=== PATIENT | female | born 1975 | race African-American/Black ===

== ENCOUNTER → 2017-03-31 | Outpatient (CLI) | payer OTHER ==
--- NOTE | 2017-03-31 21:00 | MR ---
EXAMINATION TYPE: MR knee RT wo con DATE OF EXAM: 03/31/2017 COMPARISON: X-ray 02/08/2016 HISTORY: Rt knee pain, no trauma TECHNIQUE: Multiplanar, multisequence imaging of the right knee is performed without IV contrast. FINDINGS: MEDIAL MENISCUS: Lateral meniscus has a normal appearance. 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 LATERAL MENISCUS: Anterior and posterior horns are intact without tear. CRUCIATE LIGAMENTS: There is no evidence of tear of the posterior cruciate ligament. Anterior cruciat e ligament has a normal origin and insertion but demonstrates ill-definition of the posterior fibers. ACL strain suspected. COLLATERAL LIGAMENTS: The medial collateral ligament and lateral collateral ligament complex are inta ct. However, there is increased fluid signal surrounding the MCL compatible with strain.. EXTENSOR MECHANISM: Visualized quadriceps and patellar tendons are intact. EFFUSION: Small amount of fluid is seen within the suprapatellar bursa. POPLITEAL CYST: 5 x 5 x 7 mm popliteal fossa cyst noted.. TRICOMPARTMENT SPACES: There is fibrillation of the patellar cartilage. Mild joint space narrowing no trev. Hypertrophic spur extending off the anterior inferior margin the patella. Mild narrowing the med ial compartment knee joint. No erosive changes. Cartilage appears maintained within the knee joint. BONE MARROW SIGNAL: Abnormal signal alteration within the inferior margin patella appears likely post degenerative and secondary to reactive marrow changes. IMPRESSION: 1. Findings are suggestive of ACL and MCL strain with no definite tear. 2. Findings are highly suggestive of a peripheral posterior horn medial meniscal tear 3. 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
== END | disposition home or self-care (01) ==
LOC: RADMRIMAIN 19:40
PROVIDERS: ATTEND Orthopaedic Surgery
DX: M17.11 Unilateral primary osteoarthritis, right knee (principal); M22.41 Chondromalacia patellae, right knee

== ENCOUNTER → 2018-01-17 | Outpatient (CLI) | payer BC ==
[2018-01-17 09:19] LABS: ALT 28 U/L (9-52); AST 15 U/L (14-36); Albumin 3.9 g/dL (3.5-5.0); Alkaline Phosphatase 76 U/L (38-126); Anion Gap 12 mmol/L; Blood Urea Nitrogen 12 mg/dL (7-17); Calcium 9.3 mg/dL (8.4-10.2); Carbon Dioxide 24 mmol/L (22-30); Chloride 105 mmol/L (98-107); Cholesterol 274 mg/dL (<200); Glucose 95 mg/dL (74-99); HDL Cholesterol 41 mg/dL (40-60); LDL Cholesterol,Calculated 190 mg/dL (0-99); Potassium 4.1 mmol/L (3.5-5.1); Sodium 141 mmol/L (137-145); Total Bilirubin 0.3 mg/dL (0.2-1.3); Total Protein 6.8 g/dL (6.3-8.2); Triglycerides 213 mg/dL (<150)
[2018-01-17 09:25] LABS: Basophils # (A) 0.1 k/uL (0-0.2); Basophils % (A) 0 %; Eosinophils # (A) 0.3 k/uL (0-0.7); Eosinophils % (A) 2 %; HCT 38.1 % (34.0-46.0); HGB 12.4 gm/dL (11.4-16.0); Lymphocytes # (A) 2.8 k/uL (1.0-4.8); Lymphocytes % (A) 25 %; MCH 28.3 pg (25.0-35.0); MCHC 32.4 g/dL (31.0-37.0); MCV 87.4 fL (80.0-100.0); Mean Platelet Volume 7.1; Monocytes # (A) 0.2 k/uL (0-1.0); Monocytes % (A) 2 %; Neutrophils # (A) 7.6 k/uL (1.3-7.7); Neutrophils % (A) 69 %; Platelet Count 288 k/uL (150-450); RBC 4.36 m/uL (3.80-5.40)
== END | disposition home or self-care (01) ==
LOC: LABWHC1 08:14
PROVIDERS: ATTEND Nurse Practitioner Family
DX: E78.5 Hyperlipidemia, unspecified (principal); D64.9 Anemia, unspecified
CPT/HCPCS: 36415; 80053; 80061; 82607; 85025

== ENCOUNTER → 2019-06-29 | Outpatient (CLI) | payer BC, OTHER ==
--- NOTE | 2019-06-29 12:08 | CT ---
EXAMINATION TYPE: CT brain wo con, CT orbits wo con DATE OF EXAM: 06/29/2019 COMPARISON: CT brain May 26, 2016 HISTORY: headache eye pain (accession [id number]), headache eye pain (accession [id number]) CT DLP: 775 (accession [id number]), 275 (accession [id number]) mGycm. Automated Exposure Control for Dos e Reduction was Utilized. TECHNIQUE: CT scan of the head and orbits are performed without contrast. FINDINGS: There is no acute intracranial hemorrhage, mass effect, or midline shift identified. The ventricles and sulci are within normal limits in size. Patel-white matter differentiation is preserv ed. New skin chrissy posterior high occipital region axial image 44. The calvarium is intact. The paranasal sinuses are clear. The orbital floors and tavarez are intact. The globes are intact bilat erally. Intraconal fat is preserved bilaterally. Rectus muscles are symmetric and felt within normal limits. Suprasellar cistern is maintained. IMPRESSION: 1. No acute intracranial hemorrhage or midline shift is seen. 2. No suspicious intraorbital findings.
--- NOTE | 2019-06-30 13:01 | ECHOF ---
Referral Reason:R51 new onset temporal headache,R01.1 heart murmur MEASUREMENTS -------- HEIGHT: 170.2 cm WEIGHT: 104.3 kg BP: RVIDd: 3.1 cm (< 3.3) IVSd: 1.4 cm (0.6 - 1.1) LVIDd: 4.1 cm (3.9 - 5.3) LVPWd: 1.4 cm (0.6 - 1.1) IVSs: 1.6 cm LVIDs: 2.9 cm LVPWs: 1.7 cm LA Diam: 3.4 cm (2.7 - 3.8) LAESV Index (A-L): 38.89 ml/m Ao Diam: 2.6 cm (2.0 - 3.7) AV Cusp: 1.8 cm (1.5 - 2.6) LA Diam: 3.3 cm (2.7 - 3.8) MV EXCURSION: 17.245 mm (> 18.000) MV EF SLOPE: 85 mm/s (70 - 150) EPSS: 0.3 cm MV E Calixto: 0.75 m/s MV DecT: 200 ms MV A Calixto: 0.88 m/s MV E/A Ratio: 0.85 RAP: 5.00 mmHg RVSP: 29.90 mmHg FINDINGS -------- Sinus rhythm. This was a technically adequate study. The left ventricular size is normal. There is moderate concentric left ventricular hypertrophy. O verall left ventricular systolic function is normal with, an EF between 55 - 60 %. The right ventricle is normal in size. The left atrial size is normal. Normal LA size by volume 22+/-6 ml/m2. The right atrial size is normal. There is mild aortic valve sclerosis. There is no evidence of aortic regurgitation. Mild mitral annular calcification present. Mild mitral regurgitation is present. Mild tricuspid regurgitation present. Right ventricular systolic pressure is normal at < 35 mmHg. There is no evidence of pulmonary hypertension. There is no pulmonic regurgitation present. The aortic root size is normal. There is no pericardial effusion. CONCLUSIONS -------- 1. Sinus rhythm. 2. This was a technically adequate study. 3. The left ventricular size is normal. 4. There is moderate concentric left ventricular hypertrophy. 5. Overall left ventricular systolic function is normal with, an EF between 55 - 60 %. 6. The right ventricle is normal in size. 7. The left atrial size is normal. 8. Normal LA size by volume 22+/-6 ml/m2. 9. The right atrial size is normal. 10. There is mild aortic valve sclerosis. 11. Mild mitral annular calcification present. 12. Mild mitral regurgitation is present. 13. Mild tricuspid regurgitation present. 14. Right ventricular systolic pressure is normal at < 35 mmHg. 15. There is no evidence of pulmonary hypertension. 16. There is no pulmonic regurgitation present. 17. The aortic root size is normal. 18. There is no pericardial effusion. SUPERVISOR STONE: Starr Ruiz RDCS
== END | disposition home or self-care (01) ==
LOC: RADECHMAIN 10:51
PROVIDERS: ATTEND Family Medicine
DX: I08.1 Rheumatic disorders of both mitral and tricuspid valves (principal); R51 Headache
CPT/HCPCS: 70450; 70480; 93306

== ENCOUNTER → 2020-04-27 | Outpatient (CLI) | payer BC, OTHER ==
--- NOTE | 2020-04-27 16:30 | US ---
EXAMINATION TYPE: US venous doppler duplex LE RT DATE OF EXAM: 04/27/2020 4:10 PM COMPARISON: NONE CLINICAL HISTORY: 44-year-old female elevated d-dimer R79.1. Right leg pain SIDE PERFORMED: Right TECHNIQUE: The lower extremity deep venous system is examined utilizing real time linear array sonog sukhi with graded compression, doppler sonography and color-flow sonography. FINDINGS: VESSELS IMAGED: External Iliac Vein (EIV) Common Femoral Vein Deep Femoral Vein Greater Saphenous Vein * Femoral Vein Popliteal Vein Small Saphenous Vein * Proximal Calf Veins (* superficial vessels) Right Leg: Negative for DVT, mild complex Beltran's cyst right pop fossa= 4.9 x 2.5 x 4.6 cm IMPRESSION: 1. No evidence for DVT within the right lower extremity imaged from the groin to the upper calf. 2. A moderate sized, mildly complex 4.9 cm Beltran cyst.
--- NOTE | 2020-04-28 10:26 | XR ---
Right knee HISTORY: Trauma and pain 3 views of the right knee, correlation prior exam 01/29/2016 Bone mineralization and alignment are maintained. Right spaces are stable. Suprapatellar increased de nsity may be indicative of small effusion. IMPRESSION: No fracture or dislocation. Possible joint effusion. Knee MRI may be of benefit.
== END | disposition home or self-care (01) ==
LOC: RADUSWWP 15:52
PROVIDERS: ATTEND Family Medicine
DX: M71.21 Synovial cyst of popliteal space [Baker], right knee (principal); S89.91XA Unspecified injury of right lower leg, initial encounter; M25.561 Pain in right knee

== ENCOUNTER → 2020-06-20 | Outpatient (CLI) | payer BC, OTHER ==
--- NOTE | 2020-06-20 13:19 | MR ---
EXAMINATION TYPE: MR knee RT wo con DATE OF EXAM: 06/20/2020 COMPARISON: Right knee MRI March 31, 2017. Right knee x-ray April 27, 2020 HISTORY: Rt knee pain, swelling, and locking sensation S/P fall, history of prior surgery. TECHNIQUE: Multiplanar, multisequence imaging of the right knee is performed without IV contrast. FINDINGS: MEDIAL MENISCUS: New truncated medial meniscus deeper aspect with new linear like signal posterior ho rn, does not extend to articular surface. LATERAL MENISCUS: Anterior and posterior horns are intact without tear. CRUCIATE LIGAMENTS: The anterior and posterior cruciate ligaments are intact and unremarkable. COLLATERAL LIGAMENTS: The medial collateral ligament and lateral collateral ligament complex are inta ct. New surrounding fluid signal is present. EXTENSOR MECHANISM: Visualized quadriceps and patellar tendons are intact. EFFUSION: Small suprapatellar joint effusion larger versus prior. POPLITEAL CYST: More prominent ill-defined fluid at the level of the popliteal fossa extending infer iorly. TRICOMPARTMENT SPACES: Moderate to severe patellofemoral compartment joint space narrowing more promi nent from prior. CARTILAGE: Full-thickness chondromalacia patella is present at this level. BONE MARROW SIGNAL: Heterogeneity consistent with red marrow reconversion. There is no suspicious radha ma. OTHER: No additional significant abnormality is appreciated. IMPRESSION: 1.Suspect interval partial medial meniscectomy. New intrasubstance tear posterior horn medial meniscu s. No new full-thickness meniscal tear. 2. Advanced patellofemoral joint arthropathy especially for patient's chronologic age with full-thick ness cartilaginous loss present. Interval progression from 2017 MRI. 3. Small suprapatellar joint effusion new from prior MRI. 4. Mild MCL and LCL sprain injuries on current study. 5. Large leaking popliteal cyst on current study.
== END | disposition home or self-care (01) ==
LOC: RADMRIMAIN 11:19
PROVIDERS: ATTEND Orthopaedic Surgery
DX: S83.411A Sprain of medial collateral ligament of right knee, initial encounter (principal); S83.421A Sprain of lateral collateral ligament of right knee, initial encounter; S83.241A Other tear of medial meniscus, current injury, right knee, initial encounter; M17.11 Unilateral primary osteoarthritis, right knee

== ENCOUNTER → 2020-07-07 | Outpatient (CLI) | payer BC, OTHER ==
--- NOTE | 2020-07-07 09:39 | US ---
EXAMINATION TYPE: US thyroid st tissue head/neck DATE OF EXAM: 07/07/2020 COMPARISON: NONE CLINICAL HISTORY: 44-year-old female Goiter, E04.9. TECHNIQUE: Multiple sonographic images of the thyroid gland are obtained. FINDINGS: GLAND SIZE: Right Lobe: 5.3 x 1.7 x 1.4 cm Overall Parenchyma: homogenous Left Lobe: 4.8 x 1.2 x 1.3 cm Overall Parenchyma: homogeneous Isthmus Thickness: 0.3 cm NODULES RIGHT: # of nodules measured on right: 0 LEFT: # of nodules measured on left: 0 ISTHMUS: # of nodules measured in the isthmus: 0 Bilateral neck scanned, no evidence of lymphadenopathy. IMPRESSION: Borderline to mild thyromegaly. No discrete nodule.
--- NOTE | 2020-07-07 10:14 | US ---
EXAMINATION TYPE: US renal artery duplex complete DATE OF EXAM: 07/07/2020 COMPARISON: US 2014 CLINICAL HISTORY: 44-year-old female resistant hypertension,E04.9,I10,G27.1. Patient states hypertens ion for 30 years, somewhat controlled on meds. TECHNIQUE: Multiple sonographic images of the kidneys are obtained. Color Doppler and spectral wavefo rm analysis of the renal arteries. FINDINGS: MEASUREMENTS: RENAL SIZE: Rt Kidney: 10.9 x 4.8 x 5.9 cm Lt Kidney: 12.1 x 5.7 x 6.5 cm No hydronephrosis on either side. RESISTANCE INDEX Right: 0.63 Left: 0.60 RA/AO RATIO (< 3.5 ) Right: 1.7 Left: 1.4 RA VELOCITY ( < 180 cm/s) Right: 158 Left: 130 Dumper Bulk System notes: Aorta unremarkable. Kidneys unremarkable other than exophytic cyst right renal mid /lateral measures 1.2 x 1.2 x 1.2 cm. No ultrasound evidence for renal artery stenosis. Good upstroke on segmentals at renal hilum. Satisfactory resistive waveforms noted throughout. IMPRESSION: 1. Incidental 1.2 cm benign cyst at the right midpole. 2. No hydronephrosis. 3. No sonographic evidence for renal artery stenosis on either side.
== END | disposition home or self-care (01) ==
LOC: RADUSWWP 08:05
PROVIDERS: ATTEND Family Medicine
DX: E01.0 Iodine-deficiency related diffuse (endemic) goiter (principal); R03.0 Elevated blood-pressure reading, without diagnosis of hypertension; Q27.1 Congenital renal artery stenosis
CPT/HCPCS: 76536; 93975

== ENCOUNTER → 2020-12-01 | Day surgery (SDC) | payer BC, OTHER ==
[2020-11-03 13:27] VITALS: BMI 37.5
--- NOTE | 2020-11-30 13:49 | HP ---
HISTORY AND PHYSICAL CHIEF COMPLAINT: Right knee pain. 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 She did have a fall injection in February of 2020 that exacerbated her symptoms. She has tried medications in addition to injections with partial temporary relief. She notes persistent swelling, stiffness, and giving way. She has also been working on dietary restrictions to aid in weight loss. PAST MEDICAL HISTORY: Significant for hypertension, obesity, and depression. PAST SURGICAL HISTORY: Significant right knee arthroscopy. CURRENT MEDICATIONS: 1. Abilify. 2. Amlodipine. 3. Hydralazine. 4. Lisinopril. 5. Trazodone. 6. Xanax. ALLERGIES: She denies drug allergies. FAMILY HISTORY: Significant for diabetes, renal disease. SOCIAL HISTORY: Significant 1 pack per day tobacco use. REVIEW OF SYSTEMS: Sixteen-point review of systems otherwise reviewed and is noncontributory. PHYSICAL EXAMINATION: On examination, the patient is approximately 5 feet 7 inches, 240 pounds of endomorphic habitus. HEENT exam is nonfocal. Neck is supple. She has painless passive motion of the right hip. Straight leg raise is negative. Active motion right knee -14 to 75 degrees of flexion. She has a moderate effusion. She is tender about the lateral joint line. Collaterals are stable, Indio is negative, Sho's elicits lateral pain. Her distal neurovascular exam appears intact in the right lower extremity. Previous MRI of the right knee shows evidence of patellofemoral degenerative changes along with possible patellar chondral injury. Previous partial medial meniscectomy is noted. There is also a large effusion. IMPRESSION: 1. Right knee patellofemoral compartment osteoarthrosis. 2. Right knee internal derangement, possible patellar chondral injury. 3. Right knee effusion/synovitis. 4. Obesity. RECOMMENDATIONS: I talked to the patient at length regarding her condition and treatment options. At this point she is having persistent pain and mechanical symptoms despite previous conservative measures. After thorough discussion, she opts to proceed with surgery. We will plan to proceed with arthroscopic evaluation, possible patellar chondroplasty in addition to possible synovectomy. Risks and benefits were discussed at length in layman's terms. We will likely perform that as an outpatient procedure. MMODL / IJN: [id number] /
[~2020-12-01] MED LIST: DEXAMETHASONE SOD PHOSPHATE 4 MG/ML 1 ML VIAL IV ONE; EPINEPHrine (PF) 1 ML in SODIUM CHLORIDE 0.9% IRRIGATIO 3,000 ML IRRIGATION ONE; GLYCOPYRROLATE 0.2 MG/ML 2 ML VIAL ONE; HYDROcodone/APAP 5-325MG 1 EACH TAB ONE; HYDROcodone/APAP 5-325MG 1 EACH TAB PO ONE; HYDROmorphone 0.5 MG/0.5 ML SYRINGE IVP PRN; LACTATED RINGERS 1,000 ML IV SCH; LIDOCAINE 1% (10MG/ML) FOR IV START INTRADERMA ONE; LIDOCAINE 1% INJ 10MG/ML (20 ML MDV) ONE; MIDAZOLAM 2 MG/2 ML VIAL IV PRN; MIDAZOLAM 2 MG/2 ML VIAL ONE; ONDANSETRON 4 MG/2 ML VIAL IVP ONE; PROPOFOL 10 MG/ML 20 ML VIAL IV ONE; SCOPOLAMINE 1.5MG/72HR PATCH TRANSDERM ONE; fentaNYL (PF) 50 MCG/ML 2 ML AMP ONE
[2020-12-01 09:09] LABS: African American GFR (CKD) >90 (>60 ml/min/1.73 sqM); Anion Gap 9 mmol/L; Blood Urea Nitrogen 12 mg/dL (7-17); Calcium 9.3 mg/dL (8.4-10.2); Carbon Dioxide 24 mmol/L (22-30); Chloride 106 mmol/L (98-107); Glucose 105 mg/dL (74-99); Non-African American GFR(CKD) >90 (>60 ml/min/1.73 sqM); Potassium 3.5 mmol/L (3.5-5.1); Sodium 139 mmol/L (137-145)
--- NOTE | 2020-12-01 10:28 | P.OP ---
Date of Procedure: 12/01/20 Preoperative Diagnosis: Right knee internal derangement Postoperative Diagnosis: Right knee grade 3 chondral injury distal lateral portion medial femoral condyle/grade 3 chondral injury medial patella facet reactive synovitis medial, lateral, and patellofemoral compartments Procedure(s) Performed: Right knee arthroscopic medial femoral chondrectomy/patellar chondroplasty/medial femoral condyle microfracture/partial synovectomy of the medial, lateral, and patellofemoral compartments Anesthesia: GETA Surgeon: Sherman Barbosa Estimated Blood Loss (ml): 10 Pathology: none sent Condition: stable Disposition: PACU Indications for Procedure: Patient is a 45-year-old female presents with progressive/persistent right knee pain and mechanical symptoms after previous twisting injury despite conservative measures. A discussion of the risks and benefits of operative intervention ve rsus continued conservative measures was made with the patient. She opted to proceed with surgery. Operative risks to include infection, neurovascular injury, development of blood clots, possible incomplete resolution of symptoms, possible worsening symptoms and need for subsequent procedures was discussed. Informed consent was obtained. Operative Findings: As below Description of Procedure: The patient was brought to the operating room, and after induction of general anesthesia examined the right knee. Collaterals were stable, Indio was negative, and posterior drawer was negative. The right lower extremity was prepped and draped in a normal fashion. A superior lateral portal was made through a 3 mm skin incision superior and lateral to the patella. This was used for outflow. A lateral portal was made through a 5 mm vertical skin incision lateral to the patella tendon above the joint line. Diagnostic arthroscopy was performed. On inspection of the medial compartment, the medial meniscus was stable and intact. A grade 3 chondral injury involving the distal lateral portion of the medial femoral condyle was noted with a loose chondral fragment. This was debrided back to stable base with a motorized shaver. Microfracture was performed utilizing a power pick breaching the subchondral surface down to the bone marrow elements. Reactive synovitis involving the anterior medial compartment was debrided with a motorized shaver. This was debrided back to stable base with straight baskets and a motorized shaver. On inspection of the notch, a partial tear involving the ACL was noted off the medial tibial spine. The remaining ACL appeared to be functioning. On inspection of the lateral compartment, the lateral meniscus was stable and intact. Reactive synovitis involving the anterior lateral compartment was debrided with a motorized shaver.. On inspection of the patellofemoral articulation the grade 3-4 chondral changes were noted diffusely. There was a loose chondral fragment involving the medial patella facet that was debrided with motorized shaver. Reactive synovitis involving the patellofemoral articulation was debrided with a motorized shaver. The gutters were clear debris. The knee was then thoroughly irrigated. The portals were closed with Steri-Strips. A sterile dressing was applied in addition to a compression stocking. The patient was awoken from general anesthesia and transferred to recovery room in good condition. Blood loss was estimated at 10 mL. No complications were incurred.
[2020-12-01 10:32] VITALS: TEMP 97
[2020-12-01] MEDS: HYDROmorphone 1 MG/ML 1 ML SYRINGE IVP ONE ×2 (10:36→10:45)
[2020-12-01 11:08] VITALS: RESP 18
[2020-12-01 11:43] VITALS: BP 133/75; PULSE 97
== END | disposition home or self-care (01) ==
LOC: OR 08:05
PROVIDERS: ATTEND Orthopaedic Surgery
DX: S83.31XA Tear of articular cartilage of right knee, current, initial encounter (principal); X50.1XXA Overexertion from prolonged static or awkward postures, initial encounter; M65.861 Other synovitis and tenosynovitis, right lower leg; I10 Essential (primary) hypertension; F17.210 Nicotine dependence, cigarettes, uncomplicated; E78.5 Hyperlipidemia, unspecified; E66.9 Obesity, unspecified; Z68.41 Body mass index [BMI] 40.0-44.9, adult; F32.9 Major depressive disorder, single episode, unspecified; Z84.1 Family history of disorders of kidney and ureter; Z83.3 Family history of diabetes mellitus; Z98.890 Other specified postprocedural states; Z79.899 Other long term (current) drug therapy
CPT/HCPCS: 80048; 29879; J2250; J1100; J0690; J2405; J0171; J2001; J3010; J1170; J2704

== ENCOUNTER → 2021-01-25 | Outpatient (CLI) | payer BC, OTHER ==
--- NOTE | 2021-01-25 13:21 | US ---
EXAMINATION TYPE: US venous doppler duplex LE RT DATE OF EXAM: 01/25/2021 12:58 PM COMPARISON: 04/27/2020 CLINICAL HISTORY: M79.661,R22.41 PAIN AND SWELLING RT LOWER LIMB. Right ankle swelling SIDE PERFORMED: Right TECHNIQUE: The lower extremity deep venous system is examined utilizing real time linear array sonog sukhi with graded compression, doppler sonography and color-flow sonography. VESSELS IMAGED: Common Femoral Vein Deep Femoral Vein Greater Saphenous Vein * Femoral Vein Popliteal Vein Small Saphenous Vein * Proximal Calf Veins (* superficial vessels) Right Leg: Negative for DVT known Bakers cyst appears complex and slightly larger @ 5.1cm IMPRESSION: 1. Complex right Beltran's cyst within the median popliteal fossa measuring 5.1 cm. This is slightly la rger than prior exam. 2. No evidence of deep venous thrombosis in the right lower extremity veins.
== END | disposition home or self-care (01) ==
LOC: RADUSWWP 12:29
PROVIDERS: ATTEND Family Medicine
DX: M71.21 Synovial cyst of popliteal space [Baker], right knee (principal)

== ENCOUNTER → 2021-02-20 | Outpatient (CLI) | payer BC, OTHER ==
--- NOTE | 2021-02-20 13:59 | XR ---
EXAMINATION TYPE: XR ankle complete RT DATE OF EXAM: 02/20/2021 COMPARISON: NONE HISTORY: Pain FINDINGS: Three views of the ankle demonstrate the ankle mortise to be intact and symmetric. The joint spaces are preserved. The osseous structures are intact. Soft tissue edema noted. Tiny calcaneal spurs not ed. IMPRESSION: 1. No definite acute fracture or dislocation, if symptoms persist follow-up study in 7 to 10 days wou ld be suggested.
--- NOTE | 2021-02-20 14:00 | XR ---
EXAMINATION TYPE: XR knee complete RT DATE OF EXAM: 02/20/2021 COMPARISON: 04/27/2020 HISTORY: Pain TECHNIQUE: Three views are submitted. FINDINGS: Mild narrowing of the medial compartment of knee joint. Hypertrophic spurring and mild narrowing of p atellofemoral joint. [id number] suprapatellar bursal fluid collection.. Osseous structures ar e intact. No acute fracture seen. IMPRESSION: 1. No acute fracture or dislocation. 2. Arthropathy correlate for osteoarthritis. 3. Small suprapatellar bursal fluid collection. Correlate with MRI as clinically warranted.
--- NOTE | 2021-02-20 14:02 | XR ---
EXAMINATION TYPE: XR foot complete RT DATE OF EXAM: 02/20/2021 COMPARISON: NONE HISTORY: Pain TECHNIQUE: Three views are submitted. FINDINGS: The osseous structures are intact. There is no acute fracture or dislocation. Mild first MTP hyper trophic arthropathy. No erosive changes. Tiny calcaneal spurs noted.. There is soft tissue edema. IMPRESSION: 1. No acute fracture or dislocation. If symptoms persist, follow-up exam in 7 to 10 days could be ob tained.
== END | disposition home or self-care (01) ==
LOC: RADXRMAIN 13:27
PROVIDERS: ATTEND Family Medicine
DX: M77.31 Calcaneal spur, right foot (principal); M25.861 Other specified joint disorders, right knee

== ENCOUNTER → 2022-04-08 | Outpatient (CLI) | payer BC, OTHER ==
--- NOTE | 2022-04-09 10:48 | MM ---
Reason for Exam: Screening (asymptomatic). Last mammogram was performed 4 year(s) and 10 month(s) ago. Patient History: Menarche at age 13. First Full-Term at age 23. Hysterectomy at age 34. Postmenopausal. Maternal grandmother had breast cancer at or over age 50. Risk Values: Maddi 5 year model risk: 0.9%. NCI Lifetime model risk: 9.3%. Prior Study Comparison: 06/19/2017 Bilateral Screening Mammogram, [facility]. Tissue Density: The breast tissue is heterogeneously dense. This may lower the sensitivity of mammography. Findings: Analyzed By CAD. There is no suspicious group of microcalcifications or new suspicious mass in either breast. Overall Assessment: Negative, BI-RAD 1 Management: Screening Mammogram of both breasts in 1 year. A clinical breast exam by your physician is recommended on an annual basis and results should be correlated with mammographic findings. Electronically signed and approved by: Jamaal Tapia DO
== END | disposition home or self-care (01) ==
LOC: RADMAMWWP 16:41
PROVIDERS: ATTEND Family Medicine
DX: Z12.31 Encounter for screening mammogram for malignant neoplasm of breast (principal); Z78.0 Asymptomatic menopausal state; Z80.3 Family history of malignant neoplasm of breast
CPT/HCPCS: 77067

== ENCOUNTER → 2022-11-12 | Outpatient (CLI) | payer BC ==
[2022-11-12 14:22] LABS: HCT 36.2 % (37.2-46.3); MCH 27.4 pg (27.0-32.0); MCHC 30.4 g/dL (32.0-37.0); Mean Platelet Volume 10.6 fL (9.5-12.2); NRBC Per 100 WBC 0 /100 WBCS (0.0-0.0); Platelet Count 238 X 10*3/uL (140-440); RBC 4.02 X 10*6/uL (4.10-5.20); RDW 13.8 % (11.5-14.5); WBC 12.33 X 10*3/uL (4.50-10.00)
[2022-11-12 17:30] LABS: African American GFR (CKD) 92.2 (60.0-200.0); Carbon Dioxide 24.2 mmol/L (20.0-27.5); Non-African American GFR(CKD) 79.6 (60.0-200.0); Potassium 3.5 mmol/L (3.5-5.5)
== END | disposition home or self-care (01) ==
LOC: LABPAT 09:10
PROVIDERS: ATTEND Internal Medicine
DX: Z01.812 Encounter for preprocedural laboratory examination (principal); R06.02 Shortness of breath
CPT/HCPCS: 80051; 82565; 84520; 85027

== ENCOUNTER 2022-11-20 10:19 | Day surgery (SDC) | payer BC ==
[2022-11-18 10:02] VITALS: BMI 36.0
[~2022-11-20 10:19] MED LIST changes: +ALPRAZolam 0.25 MG TAB PO PRN; +ASPIRIN 325 MG TAB PO ONE; -DEXAMETHASONE SOD PHOSPHATE 4 MG/ML 1 ML VIAL IV ONE; -EPINEPHrine (PF) 1 ML in SODIUM CHLORIDE 0.9% IRRIGATIO 3,000 ML IRRIGATION ONE; -GLYCOPYRROLATE 0.2 MG/ML 2 ML VIAL ONE; -HYDROcodone/APAP 5-325MG 1 EACH TAB ONE; -HYDROcodone/APAP 5-325MG 1 EACH TAB PO ONE; -HYDROmorphone 0.5 MG/0.5 ML SYRINGE IVP PRN; -LACTATED RINGERS 1,000 ML IV SCH; -LIDOCAINE 1% (10MG/ML) FOR IV START INTRADERMA ONE; -LIDOCAINE 1% INJ 10MG/ML (20 ML MDV) ONE; -MIDAZOLAM 2 MG/2 ML VIAL IV PRN; -MIDAZOLAM 2 MG/2 ML VIAL ONE; +NITROGLYCERIN SL TABS 0.4 MG TAB SUBLINGUAL PRN; -ONDANSETRON 4 MG/2 ML VIAL IVP ONE; -PROPOFOL 10 MG/ML 20 ML VIAL IV ONE; -SCOPOLAMINE 1.5MG/72HR PATCH TRANSDERM ONE; +SODIUM CHLORIDE 0.9% 1,000 ML in EMPTY BAG 1 BAG IV SCH; -fentaNYL (PF) 50 MCG/ML 2 ML AMP ONE
[2022-11-20] MEDS ORDERED: VERAPAMIL 2.5 MG/ML 2 ML AMP ONE (10:48)
[2022-11-20] MEDS ORDERED: fentaNYL (PF) 50 MCG/ML 2 ML AMP ONE (10:51)
[2022-11-20 10:58] VITALS: RESP 16; TEMP 98.6
[2022-11-20] MEDS ORDERED: SODIUM CHLORIDE 0.9% 1,000 ML IV ONE (11:08)
[2022-11-20] MEDS ORDERED: LIDOCAINE 1% INJ 10MG/ML (5 ML VIAL-PF) SQ ONE (11:41)
[2022-11-20] MEDS: fentaNYL (PF) 50 MCG/1 ML VIAL IV ONE ×2 (11:41→11:58)
[2022-11-20] MEDS: MIDAZOLAM 2 MG/2 ML VIAL IV ONE ×2 (11:41→11:50)
[2022-11-20] MEDS: VERAPAMIL SYRINGE (5 MG/10 ML) INTRAARTER ONE ×2 (11:43→11:50)
[2022-11-20] MEDS ORDERED: HEPARIN SODIUM 1,000 UN/ML (10ML VL) IV ONE (11:53)
[2022-11-20] MEDS ORDERED: VERAPAMIL SYRINGE (5 MG/10 ML) INTRAARTER ONE (11:59)
[2022-11-20] MEDS ORDERED: IOPAMIDOL-370 125ML BTL INJ ONE (12:07)
--- NOTE | 2022-11-20 12:27 | P.CARDCATH ---
Description of Procedure: PROCEDURES PERFORMED: Left heart catheterization, bilateral coronary angiography INDICATION: Dyspnea on exertion, poor exercise tolerance concerning for unstable angina CONSENT:I have discussed the risks, benefits and alternative therapies for the above-mentioned procedure and for both sedation/analgesia as well as necessary blood product administration, if indicated, as they pertain to this patient. The patient has indicated understanding and acceptance of the risks and procedures discussed. PROCEDURE: After the risks, benefits and alternatives of the above mentioned procedure explained in detail with the patient, informed consent was obtained. Patient was taken to the catheterization lab and prepped and draped in usual fashion. 1% lidocaine was used to anesthetize the right radial artery. A 6- Syrian sheath was placed in the right radial artery using modified Seldinger technique. Left coronary angiography was performed with a 5-Syrian JL 3.5 catheter and right coronary angiography was performed with a 5-Syrian JR5 catheter in various views. A 5-Syrian FR5 catheter was inserted into the left ventricle and pressure measurements were obtained. The right radial sheath was removed and a TR band was placed with hemostasis achieved. The patient tolerated the procedure well. Patient was transported back to the post catheterization holding area in stable condition. Conscious Sedation: Patient was monitored under the direct supervision of vision of myself for conscious sedation using Versed and fentanyl for a total duration of 24 minutes HEMODYNAMICS: Aorta: 137/78 CHRISTINA: 139/5, LVEDP 15 SELECTIVE CORONARY ARTERIOGRAPHY: LEFT MAIN: The left main is a large caliber vessel which bifurcates into the LAD and circumflex. There is no significant stenosis. LEFT ANTERIOR DESCENDING CORONARY ARTERY: LAD is a large caliber vessel which wraps around to the apex. There is no significant stenosis. LEFT CIRCUMFLEX CORONARY ARTERY: Left circumflex is a moderate caliber vessel without significant stenosis. RIGHT CORONARY ARTERY: The right coronary artery is a large caliber vessel which gives off a PDA and PLV branch and is the dominant vessel. There is no significant stenosis. FINAL IMPRESSION: 1. Normal coronary arteries as described above. 2. Normal left sided filling pressures PLAN: 1. Aggressive risk factor modification per most recent ACC/AHA guidelines. 2. Follow-up in the office in 1-2 weeks.
[2022-11-20 15:36] VITALS: BP 161/94; PULSE 48
== END 2022-11-20 15:56 | disposition home or self-care (01) ==
LOC: CATHCVL 10:19
PROVIDERS: ATTEND Internal Medicine
DX: R06.02 Shortness of breath (principal); I10 Essential (primary) hypertension; E78.5 Hyperlipidemia, unspecified; F17.210 Nicotine dependence, cigarettes, uncomplicated; Z82.49 Family history of ischemic heart disease and other diseases of the circulatory system; Z79.899 Other long term (current) drug therapy
CPT/HCPCS: 93458; J2250; J2001; J1644; Q9967; J3010

== ENCOUNTER 2023-03-28 09:39 | Emergency (ER) | payer BC ==
[2023-03-28 09:43] VITALS: TEMP 98.3
[2023-03-28] MEDS ORDERED: KETOROLAC 15 MG/ML 1 ML VIAL IVP STA ×2 (09:51→11:40)
[2023-03-28] MEDS ORDERED: SODIUM CHLORIDE 0.9% 1,000 ML IV STA (09:51)
[2023-03-28 10:17] LABS: Basophils % (A) 0 %; Eosinophils # (A) 0.3 k/uL (0-0.7); Eosinophils % (A) 2 %; HCT 38.2 % (34.0-46.0); Lymphocytes # (A) 2.2 k/uL (1.0-4.8); Lymphocytes % (A) 17 %; MCHC 31.4 g/dL (31.0-37.0); MCV 88.9 fL (80.0-100.0); Mean Platelet Volume 7.9; Monocytes # (A) 0.2 k/uL (0-1.0); Monocytes % (A) 2 %; Neutrophils # (A) 10.5 k/uL (1.3-7.7); Neutrophils % (A) 78 %; Platelet Count 212 k/uL (150-450); RDW 14.4 % (11.5-15.5); WBC 13.4 k/uL (3.8-10.6)
--- NOTE | 2023-03-28 10:19 | ED ---
Abdominal Pain HPI - General Chief Complaint: Abdominal Pain Stated Complaint: abd pain Time Seen by Provider: 03/28/23 09:48 Source: patient, RN notes reviewed Mode of arrival: ambulatory Limitations: no limitations - History of Present Illness Initial Comments: This is a 47-year-old female who presents to the emergency department for abdominal pain. Patient states that she started to develop lower abdominal pain early this morning. Describes it as being sharp in nature. She's minor associated diarrhea. Denies any nausea or vomiting. Also denies any history of similar symptoms in the past. Denies any fevers, chills, sore throat, cough, dyspnea, chest pain, palpitations, nausea, vomiting, back pain, or headaches. MD Complaint: abdominal pain - Related Data Home Medications Medication Instructions Recorded Confirmed lisinopriL [Lisinopril] 20 mg PO DAILY 01/29/16 11/20/22 ARIPiprazole [Abilify] 10 mg PO DAILY 11/03/20 11/20/22 Acetaminophen [Tylenol Arthritis] 650 mg PO TID PRN 11/03/20 11/18/22 Atorvastatin [Lipitor] 40 mg PO HS 11/03/20 11/20/22 Venlafaxine HCl ER [Effexor Xr] 150 mg PO DAILY 11/03/20 11/20/22 amLODIPine BESYLATE 5 mg PO BID 11/03/20 11/20/22 hydrALAZINE HCL [Apresoline] 100 mg PO TID 11/03/20 11/20/22 traZODone HCL 100 mg PO HS 11/03/20 11/20/22 Progesterone, Micronized 200 mg PO DAILY 11/18/22 11/20/22 [Progesterone] estradioL [estradioL (Once Weekly) 1 patch TRANSDERM Q3D 11/18/22 11/20/22 0.075mg Patch] Metoprolol Tartrate 25 mg PO DAILY 11/20/22 11/20/22 Previous Rx's Medication Instructions Recorded HYDROcodone/APAP 7.5-325MG [[place] 1 tab PO Q6HR PRN 3 Days #12 tab 03/28/23 7.5-325] Ketorolac [Toradol] 10 mg PO Q6HR PRN #15 tab 03/28/23 Allergies Allergy/AdvReac Type Severity Reaction Status Date / Time No Known Allergies Allergy Verified 03/28/23 09:43 Review of Systems ROS Statement: Those systems with pertinent positive or pertinent negative responses have been documented in the HPI. ROS Other: All systems not noted in ROS Statement are negative. Past Medical History Past Medical History: Hyperlipidemia, Hypertension, Osteoarthritis (OA) Additional Past Medical History / Comment(s): right knee pain, History of Any Multi-Drug Resistant Organisms: None Reported Past Surgical History: Section, Hysterectomy, Orthopedic Surgery Additional Past Surgical History / Comment(s): ARTHROSCOPIC RIGHT KNEEE Past Psychological History: Anxiety, Depression Smoking Status: Current every day smoker Past Alcohol Use History: None Reported Past Drug Use History: None Reported - Past Family History Mother Family Medical History: No Reported History, Deep Vein Thrombosis (DVT) General Exam Limitations: no limitations General appearance: alert, in no apparent distress Head exam: Present: atraumatic, normocephalic, normal inspection Respiratory exam: Present: normal lung sounds bilaterally. Absent: respiratory distress, wheezes, rales, rhonchi, stridor Cardiovascular Exam: Present: regular rate, normal rhythm, normal heart sounds. Absent: systolic murmur, diastolic murmur, rubs, gallop, clicks GI/Abdominal exam: Present: soft, tenderness (mid abdomen), normal bowel sounds. Absent: distended Neurological exam: Present: alert, oriented X3, CN II-XII intact Psychiatric exam: Present: normal affect, normal mood Skin exam: Present: warm, dry, intact, normal color. Absent: rash Course Vital Signs 03/28/23 03/28/23 03/28/23 09:40 10:43 11:58 Temperature 98.3 F Pulse Rate 62 54 L 46 L Respiratory 16 18 18 Rate Blood Pressure 156/86 145/71 144/90 O2 Sat by Pulse 99 99 98 Oximetry Medical Decision Making - Medical Decision Making This is a 47-year-old female who presents to the emergency department for abdominal pain. Was pt. sent in by a medical professional or institution? @ -No Did you speak to anyone other than the patient for history? @ -No Did you review nursing and triage notes? @ -Yes, and I agree, it is accurate with regards to the patient's symptoms. Were old charts reviewed? @ -No Differential Diagnosis? @ -Differential Abdominal Pain Women: Appendicitis, Cholecystitis, diverticulosis, ischemic bowel, pancreatitis, hepatitis, UTI, gastroenteritis, AAA, incarcerated hernia, bowel obstruction, constipation, inflammatory bowel, hepatitis, peptic ulcer disease, splenic infarction, perforated viscus, vulvitis, ovarian torsion, PID, kidney stone, placenta abruption, this is not meant to be an all-inclusive list EKG interpreted by me (3pts min.)? @ -EKG interpreted by me demonstrating the following: Sinus bradycardia. Ventricular rate 55 beats per minute, WI interval 156 ms, QRS duration 104 ms, QTC 424 ms. X-rays interpreted by me (1pt min.)? @ -Not obtained CT interpreted by me (1pt min.)? @ -Computed tomography scan of the abdomen and pelvis obtained. My interpretation identifies no evidence of free air. U/S interpreted by me (1pt. min.)? @ -Not obtained What testing was considered but not performed? (CT, X-rays, U/S, labs)? Why? @ -None What meds were considered but not given? Why? @ -None Did you discuss the management of the patient with other professionals? @ -No Did you reconcile home meds? @ -No Was smoking cessation discussed for >3mins.? @ -No Was critical care preformed (if so, how long)? @ -No Were there social determinants of health that impacted care today? How? (Homelessness, low income, unemployed, alcoholism, drug addiction, transportation, low edu. Level, literacy, decrease access to med. care, long-term, re hab)? @ -No Was there de-escalation of care discussed even if they declined? (Discuss DNR or withdrawal of care, Hospice)? @ -No What co-morbidities impacted this encounter? (DM, HTN, Smoking, COPD, CAD, Cancer, CVA, Hep., AIDS, mental health diagnosis, sleep apnea, morbid obesity)? @ -Morbid obesity Was patient admitted / discharged? @ -Discharged. Lab work obtained revealing leukocytosis and no other actionable findings. Computed tomography scan of the abdomen and pelvis obtained revealing enteritis with moderate surrounding inflammation. There is also a p ossible developing partial small bowel obstruction. Additionally, there is an enlarged cystic lesion of the left ovary that is increased when compared with imaging in 2017. Neoplastic process cannot be excluded. Findings reviewed with the patient. I did offer admission for pain control with regards to the enteritis and a potential developing partial small bowel obstruction. Patient did however feel much better after pain medication and requested discharge home. Given the extent of these findings, I was willing to give her a prescription for a 3 day course of [place]. Prescriptions for Toradol and [place] provided with dosing instructions reviewed.Patient is instructed to take the Toradol with Tylenol if needed and avoid any other [id number] anti-inflammatories such as ibuprofen with the Toradol. Advised that the [place] is sedating and she should take this sparingly when her pain is the most severe and avoid driving or operating machinery when taking this. She is otherwise advised to follow-up with her primary care provider for reevaluation. 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 offered admission for pain control Undiagnosed new problem with uncertain prognosis? @ -None Drug Therapy requiring intensive monitoring for toxicity (Heparin, Nitro, Insulin, Cardizem)? @ -None Were any procedures done? @ -None Diagnosis/symptom? @ -Enteritis Acute, or Chronic, or Acute on Chronic? @ -Acute Uncomplicated (without systemic symptoms) or Complicated (systemic symptoms)? @ -Uncomplicated Side effects of treatment? @ -None Exacerbation, Progression, or Severe Exacerbation] @ -Not applicable Poses a threat to life or bodily function? @ -No Diagnosis/symptom? @ -Left ovarian cyst Acute, or Chronic, or Acute on Chronic? @ -Chronic Uncomplicated (without systemic symptoms) or Complicated (systemic symptoms)? @ -Uncomplicated Side effects of treatment? @ -None Exacerbation, Progression, or Severe Exacerbation] @ -Progression Poses a threat to life or bodily function? @ -This will depend on the etiology. Return precautions reviewed in depth, the patient is instructed to return to the emergency department with any new, worsening, or concerning symptoms. Patient verbalized understanding. This case was discussed in detail with the attending ED physician, Dr. Friend. Presentation, findings, and treatment plan discussed in detail as well. - Lab Data Result diagrams: 03/28/23 09:56 03/28/23 09:56 Lab Results 03/28/23 03/28/23 03/28/23 Range/Units 09:56 09:56 09:56 WBC 13.4 H (3.8-10.6) k/uL RBC 4.30 (3.80-5.40) m/uL Hgb 12.0 (11.4-16.0) gm/dL Hct 38.2 (34.0-46.0) % MCV 88.9 (80.0-100.0) fL MCH 28.0 (25.0-35.0) pg MCHC 31.4 (31.0-37.0) g/dL RDW 14.4 (11.5-15.5) % Plt Count 212 (150-450) k/uL MPV 7.9 Neutrophils % 78 % Lymphocytes % 17 % Monocytes % 2 % Eosinophils % 2 % Basophils % 0 % Neutrophils # 10.5 H (1.3-7.7) k/uL Lymphocytes # 2.2 (1.0-4.8) k/uL Monocytes # 0.2 (0-1.0) k/uL Eosinophils # 0.3 (0-0.7) k/uL Basophils # 0.0 (0-0.2) k/uL Sodium 140 (137-145) mmol/L Potassium 3.3 L (3.5-5.1) mmol/L Chloride 106 (98-107) mmol/L Carbon Dioxide 25 (22-30) mmol/L Anion Gap 9 mmol/L BUN 13 (7-17) mg/dL Creatinine 0.76 (0.52-1.04) mg/dL Est GFR (CKD-EPI)AfAm >90 (>60 ml/min/1.73 sqM) Est GFR (CKD-EPI)NonAf >90 (>60 ml/min/1.73 sqM) Glucose 94 (74-99) mg/dL Plasma Lactic Acid Hipolito 1.0 (0.7-2.0) mmol/L Calcium 9.2 (8.4-10.2) mg/dL Total Bilirubin 0.5 (0.2-1.3) mg/dL AST 20 (14-36) U/L ALT 21 (4-34) U/L Alkaline Phosphatase 77 (38-126) U/L Total Protein 7.0 (6.3-8.2) g/dL Albumin 4.1 (3.5-5.0) g/dL Amylase 42 (30-110) U/L Lipase 48 (23-300) U/L - Radiology Data Radiology results: report reviewed, image reviewed Disposition Clinical Impression: Enteritis, Abdominal pain, Ovarian cyst Disposition: HOME SELF-CARE Instructions (If sedation given, give patient instructions): Abdominal Pain (ED), Enteritis (ED) Additional Instructions: Return to the emergency department with any new, worsening, or concerning symptoms. Take the Toradol with Tylenol as needed for pain relief. If you choose to take the Toradol, do not take ibuprofen or any other [id number] anti-inflammatories. Take one or the other. Take the [place] sparingly when your pain is the most severe and be aware that it may make you drowsy and you should avoid driving or operating machinery when taking this. Follow up with your primary care provider in 1-2 days. Prescriptions: HYDROcodone/APAP 7.5-325MG [[place] 7.5-325] 1 tab PO Q6HR PRN 3 Days #12 tab PRN Reason: Pain Ketorolac [Toradol] 10 mg PO Q6HR PRN #15 tab PRN Reason: Pain Is patient prescribed a controlled substance at d/c from ED?: Yes When asked, does pt state using other controlled substances?: No If prescribed controlled substance>3 days was MAPS reviewed?: Prescribed <3 Days Referrals: Cayetano Carlson MD [Primary Care Provider] - 1-2 days
[2023-03-28 10:26] LABS: ALT 21 U/L (4-34); AST 20 U/L (14-36); African American GFR (CKD) >90 (>60 ml/min/1.73 sqM); Albumin 4.1 g/dL (3.5-5.0); Alkaline Phosphatase 77 U/L (38-126); Amylase 42 U/L (30-110); Anion Gap 9 mmol/L; Blood Urea Nitrogen 13 mg/dL (7-17); Calcium 9.2 mg/dL (8.4-10.2); Carbon Dioxide 25 mmol/L (22-30); Chloride 106 mmol/L (98-107); Glucose 94 mg/dL (74-99); Lipase 48 U/L (23-300); Non-African American GFR(CKD) >90 (>60 ml/min/1.73 sqM); Potassium 3.3 mmol/L (3.5-5.1); Sodium 140 mmol/L (137-145); Total Bilirubin 0.5 mg/dL (0.2-1.3)
[2023-03-28] MEDS ORDERED: HYDROmorphone 0.5 MG/0.5 ML SYRINGE IVP STA (10:35)
[2023-03-28 10:57] VITALS: RESP 18
--- NOTE | 2023-03-28 11:23 | CT ---
EXAMINATION TYPE: CT abdomen pelvis w con DATE OF EXAM: 03/28/2023 COMPARISON: 11/28/2016 HISTORY: 47-year-old female Low abdominal/pelvic pain TECHNIQUE: Contiguous axial scanning of the abdomen and pelvis following administration of 100 ml Iso vanessa 300 IV contrast. Delayed images through the kidneys and coronal/sagittal reconstructions perform ed. CT DLP: 1324 mGycm Automated exposure control for dose reduction was used. FINDINGS: LUNG BASES: No significant abnormality is appreciated. LIVER/GB: Liver mildly enlarged 18.3 cm. Suspect at least mild fatty infiltration. Portal venous syst em is patent. No biliary ductal dilatation. Small layering gallstones. No abnormal gallbladder distention. PANCREAS: No significant abnormality is seen. SPLEEN: No significant abnormality is seen. ADRENALS: No significant abnormality is seen. KIDNEYS: There is a 1.1 cm cortical cyst laterally right kidney. Symmetric uptake and excretion on wing th sides. No hydronephrosis. BOWEL: There are thickened and hyperemic small bowel loops throughout the lower abdomen and pelvis. S egments of small bowel dilatation up to 3.4 cm. Thickened and hyperemic small bowel extends to the te rminal ileum. Mild mesenteric edema in these regions. In addition, there is a possible relative trans ition point on axial image 57 with clustered small bowel loops herniating through a defect in the brian p abdominal wall fascia and partially into the left rectus abdominis. Adjacent mild interloop free fluid. There is liquid stool within the right side of the colon. No significant stool burden. No pericolic i nflammatory change. LYMPH NODES: No significant abnormality is seen. OTHER: No significant abnormality is seen. PELVIS: Bladder nondistended. Uterus appears surgically absent. However, there is a 6.3 cm cyst of t he left ovary previously having measured 4.9 cm. Right ovary is visualized. BONES: No significant abnormality is seen. IMPRESSION: 1. MID TO DISTAL ENTERITIS TO THE LEVEL OF THE ILEOCECAL VALVE. CORRELATE FOR INFECTIOUS OR INFLAMMAT ORY ETIOLOGIES. MODERATE INFLAMMATION IS PRESENT WITH ASSOCIATED MILD MESENTERIC EDEMA AND MILD REACT SHARMAINE FREE FLUID. 2. 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 SMALL BOWEL JUST PROXIMAL TO THIS IS DILATED TO 3.4 CM. RE FABIAN TO AXIAL IMAGE 57. 3. Gradually enlarging cystic lesion of the left ovary currently 6.3 cm versus 4.9 cm in 2017. Cystic epithelial ovarian neoplasm not excluded. 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 4. Cholelithiasis.
[2023-03-28] MEDS ORDERED: ACET/COD 300 MG/30 MG STARTER PACK 6 TAB BTL PO STA (11:37)
[2023-03-28] MEDS ORDERED: IBUPROFEN 600 MG STARTER PACK 4 TAB BTL PO STA (11:37)
[2023-03-28 12:07] VITALS: BP 144/90; PULSE 46
== END 2023-03-28 12:07 | disposition home or self-care (01) ==
LOC: EC 09:39
DX: K52.9 Noninfective gastroenteritis and colitis, unspecified (principal); N83.202 Unspecified ovarian cyst, left side; K80.20 Calculus of gallbladder without cholecystitis without obstruction; E78.5 Hyperlipidemia, unspecified; I10 Essential (primary) hypertension; M19.90 Unspecified osteoarthritis, unspecified site; F41.9 Anxiety disorder, unspecified; F32.A Depression, unspecified; F17.200 Nicotine dependence, unspecified, uncomplicated; Z79.899 Other long term (current) drug therapy
CPT/HCPCS: 36415; 93005; 80053; 82150; 83605; 83690; 85025; 74177; 99285; 96374; 96375; 96376; 96361; J1885; J1170; Q9967

== ENCOUNTER → 2023-04-29 | Outpatient (CLI) | payer BC ==
--- NOTE | 2023-04-30 07:55 | US ---
EXAMINATION TYPE: US venous doppler duplex LE RT DATE OF EXAM: 04/29/2023 3:39 PM COMPARISON: NONE CLINICAL INDICATION: Female, 47 years old with history of Right leg pain while walking x months; SIDE PERFORMED: Right TECHNIQUE: The lower extremity deep venous system is examined utilizing real time linear array sonog sukhi with graded compression, doppler sonography and color-flow sonography. VESSELS IMAGED: Common Femoral Vein Deep Femoral Vein Greater Saphenous Vein * Femoral Vein Popliteal Vein Small Saphenous Vein * Proximal Calf Veins (* superficial vessels) Right Leg: No evidence for DVT IMPRESSION: 1. Right lower extremity ultrasound negative for deep venous thrombosis.
== END | disposition home or self-care (01) ==
LOC: RADUSWWP 15:37
PROVIDERS: ATTEND Family Medicine
DX: M79.604 Pain in right leg (principal); I10 Essential (primary) hypertension

== ENCOUNTER → 2023-05-14 | Outpatient (CLI) | payer BC ==
--- NOTE | 2023-05-14 10:38 | US ---
EXAMINATION TYPE: US renal artery duplex complete DATE OF EXAM: 05/14/2023 COMPARISON: NONE CLINICAL INDICATION: Female, 47 years old with history of [id number] (PRIMARY) HYPERTENSION; known HTN for 30+ years, renal artery done 3 years ago and was normal MEASUREMENTS: RENAL SIZE: Rt Kidney: 11.0 X 6.0 X 4.8cm Lt Kidney: 12.1 x 6.5 x 5.7cm RESISTANCE INDEX Right: 0.6 Left: 0.6 RA/AO RATIO (< 3.5 ) Right: 1.7 Left: 1.4 RA VELOCITY ( < 180 cm/s) Right: 130.0 Left: 158.5 Note is made of a small simple right renal cyst mid IMPRESSION: 1. No significant flow-limiting stenosis by renal artery ultrasound
== END | disposition home or self-care (01) ==
LOC: RADUSWWP 08:51
PROVIDERS: ATTEND Family Medicine
DX: I10 Essential (primary) hypertension (principal); N28.1 Cyst of kidney, acquired
CPT/HCPCS: 93975

== ENCOUNTER 2023-07-28 10:14 | Emergency (ER) | payer BC ==
--- NOTE | 2023-07-28 11:05 | ED ---
Female Urogenital HPI - General Source: patient, RN notes reviewed Mode of arrival: ambulatory Limitations: no limitations <Raul Kirkpatrick - Last Filed: 07/28/23 11:04> <Jamaal Coello - Last Filed: 07/28/23 13:34> - General Chief complaint: Urogenital Stated complaint: muscular pain in vaginal area Time Seen by Provider: 07/28/23 11:04 - History of Present Illness Initial comments: 48-year-old female presents emergency Department with chief complaint of lump in her vaginal region. Patient states she's had this in the past. Patient states it's very painful. (Raul Kirkpatrick) 48-year-old female with previous perivaginal abscess presenting with pain and swelling in the region. No fever. (Jamaal Coello) - Related Data Home Medications Medication Instructions Recorded Confirmed lisinopriL [Lisinopril] 20 mg PO DAILY 01/29/16 11/20/22 ARIPiprazole [Abilify] 10 mg PO DAILY 11/03/20 11/20/22 Acetaminophen [Tylenol Arthritis] 650 mg PO TID PRN 11/03/20 11/18/22 Atorvastatin [Lipitor] 40 mg PO HS 11/03/20 11/20/22 Venlafaxine HCl ER [Effexor Xr] 150 mg PO DAILY 11/03/20 11/20/22 amLODIPine BESYLATE 5 mg PO BID 11/03/20 11/20/22 hydrALAZINE HCL [Apresoline] 100 mg PO TID 11/03/20 11/20/22 traZODone HCL 100 mg PO HS 11/03/20 11/20/22 Progesterone, Micronized 200 mg PO DAILY 11/18/22 11/20/22 [Progesterone] estradioL [estradioL (Once Weekly) 1 patch TRANSDERM Q3D 11/18/22 11/20/22 0.075mg Patch] Metoprolol Tartrate 25 mg PO DAILY 11/20/22 11/20/22 Previous Rx's Medication Instructions Recorded HYDROcodone/APAP 7.5-325MG [[place] 1 tab PO Q6HR PRN 3 Days #12 tab 03/28/23 7.5-325] Ketorolac [Toradol] 10 mg PO Q6HR PRN #15 tab 03/28/23 Amoxic-Pot Clav 875-125Mg 1 tab PO Q12HR 10 Days #20 tab 07/28/23 [Augmentin 875-125] Sulfamethox-Tmp 800-160Mg [Bactrim 1 tab PO Q12HR #28 tab 07/28/23 DS 800-160 mg] Allergies Allergy/AdvReac Type Severity Reaction Status Date / Time No Known Allergies Allergy Verified 07/28/23 11:03 Review of Systems ROS Other: All systems not noted in ROS Statement are negative. <Raul Kirkpatrick - Last Filed: 07/28/23 11:04> ROS Other: All systems not noted in ROS Statement are negative. <Jamaal Coello - Last Filed: 07/28/23 13:34> ROS Statement: Those systems with pertinent positive or pertinent negative responses have been documented in the HPI. Past Medical History Past Medical History: Hyperlipidemia, Hypertension, Osteoarthritis (OA) Additional Past Medical History / Comment(s): right knee pain, History of Any Multi-Drug Resistant Organisms: None Reported Past Surgical History: Section, Hysterectomy, Orthopedic Surgery Additional Past Surgical History / Comment(s): ARTHROSCOPIC RIGHT KNEEE Past Psychological History: Anxiety, Depression Smoking Status: Current every day smoker Past Alcohol Use History: None Reported Past Drug Use History: None Reported - Past Family History Mother Family Medical History: No Reported History, Deep Vein Thrombosis (DVT) <Raul Kirkpatrick - Last Filed: 07/28/23 11:04> General Exam Limitations: no limitations <Raul Kirkpatrick - Last Filed: 07/28/23 11:04> General appearance: alert, in no apparent distress Head exam: Present: atraumatic, normocephalic Eye exam: Present: normal appearance, PERRL ENT exam: Present: normal exam Neck exam: Present: normal inspection. Absent: tenderness, meningismus Respiratory exam: Present: normal lung sounds bilaterally. Absent: respiratory distress, wheezes Cardiovascular Exam: Present: regular rate, normal rhythm External exam: Present: swelling (At the base of the vagina left side external fluctuant abscess) Neurological exam: Present: alert, oriented X3 Psychiatric exam: Present: normal affect, normal mood <Jamaal Coello - Last Filed: 07/28/23 13:34> - General Exam Comments Initial Comments: Visual Physical Exam Vital signs reviewed General: Well-appearing, nontoxic, no acute distress. Head: Normocephalic, atraumatic Eyes: PERRLA, EOMI ENT: Airway patent Chest: Nonlabored breathing Skin: No visual rash, normal skin tone Neuro: Alert and oriented 3 Musculoskeletal: No gross abnormalities (Raul Kirkpatrick) Course Vital Signs 07/28/23 10:59 Temperature 98.8 F Pulse Rate 66 Respiratory 18 Rate Blood Pressure 165/84 O2 Sat by Pulse 99 Oximetry Procedures - Incision & Drainage Consent Obtained: verbal consent Indication: Perivaginal abscess Site: vulva/vagina Anesthetic Used: lidocaine 1% Amount (mLs): 3 I&D Cleaning Method: Chloroprep Sterile Field Used?: No Scalpel Used: #11 Needle Aspiration Performed?: Yes I&D Drainage Obtained: Pus, Blood Insertion of drain: No Culture Obtained?: No Patient Tolerated Procedure: well <Jamaal Coello - Last Filed: 07/28/23 13:34> Medical Decision Making <Raul Kirkpatrick - Last Filed: 07/28/23 11:04> <Jamaal Coello - Last Filed: 07/28/23 13:34> - Medical Decision Making I completed the quick note portion of this chart signed Raul Kirkpatrick PA-C (Raul Kirkpatrick) Was pt. sent in by a medical professional or institution ([facility], PULP PRESS TENDER, urgent care, hospital, or senior living...) When possible be specific @ -No Did you speak to anyone other than the patient for history (EMS, parent, family, police, friend...)? What history was obtained from this source @ -No Did you review nursing and triage notes (agree or disagree)? Why? @ -I reviewed and agree with nursing and triage notes Were old charts reviewed (outside hosp., previous admission, EMS record, old EKG, old radiological studies, urgent care reports/EKG's, senior living records)? Report findings @ -No old charts were reviewed Differential Diagnosis (chest pain, altered mental status, abdominal pain women, abdominal pain men, vaginal bleeding, weakness, fever, dyspnea, syncope, headache, dizziness, GI bleed, back pain, seizure, CVA, palpatations, mental health, musculoskeletal)? @ -Perirectal abscess, Bartholin gland abscess, perivaginal abscess EKG interpreted by me (3pts min.). @ -As above X-rays interpreted by me (1pt min.). @ -None done CT interpreted by me (1pt min.). @ -None done U/S interpreted by me (1pt. min.). @ -None done What testing was considered but not performed or refused? (CT, X-rays, U/S, labs)? Why? @ -None What meds were considered but not given or refused? Why? @ -None Did you discuss the management of the patient with other professionals (professionals i.e. Dr., PA, PULP PRESS TENDER, lab, RT, psych nurse, social services director, fha underwriter, teacher, helicopter officer, upper caser)? Give summary @ -No Was smoking cessation discussed for >3mins.? @ -No Was critical care preformed (if so, how long)? @ -No Were there social determinants of health that impacted care today? How? (Homelessness, low income, unemployed, alcoholism, drug addiction, transportation, low edu. Level, literacy, decrease access to med. care, long-term, rehab)? @ -No Was there de-escalation of care discussed even if they declined (Discuss DNR or withdrawal of care, Hospice)? DNR status @ -No What co-morbidities impacted this encounter? (DM, HTN, Smoking, COPD, CAD, Cancer, CVA, ARF, Chemo, Hep., AIDS, mental health diagnosis, sleep apnea, morbid obesity)? @ -None Was patient admitted / discharged? Hospital course, mention meds given and route, prescriptions, significant lab abnormalities, going to OR and other pertinent info. @ -48-year-old female with fluctuant abscess at the base of the vagina left side with tenderness and some induration. Was able to aspirate with an 18-gauge needle and obtained purulence with some blood. A small incision was made with an 11 blade at the needle track and more purulence was obtained. Patient had complete resolution in her symptoms. Undiagnosed new problem with uncertain prognosis? @ -[No] Drug Therapy requiring intensive monitoring for toxicity (Heparin, Nitro, Insulin, Cardizem)? @ -[No] Were any procedures done? @ -Yes, incision and drainage Diagnosis/symptom? @ -[Perivaginal abscess Acute, or Chronic, or Acute on Chronic? @ -[Acute Uncomplicated (without systemic symptoms) or Complicated (systemic symptoms)? @ -[default] Side effects of treatment? @ -[No] Exacerbation, Progression, or Severe Exacerbation? @ -[No] Poses a threat to life or bodily function? How? (Chest pain, [place], [place], pneumonia, PE, COPD, DKA, ARF, appy, cholecystitis, CVA, Diverticulitis, Homicidal, Suicidal, threat to staff... and all critical care pts) @ -Low risk at this time (Jamaal Coello) Disposition <Raul Kirkpatrick - Last Filed: 07/28/23 11:04> Is patient prescribed a controlled substance at d/c from ED?: No Time of Disposition: 13:34 <Jamaal Coello - Last Filed: 07/28/23 13:34> Clinical Impression: Abscess of vagina Disposition: HOME SELF-CARE Condition: Good Instructions (If sedation given, give patient instructions): Abscess (ED) Additional Instructions: Please follow up with her primary care provider. Prescriptions: Amoxic-Pot Clav 875-125Mg [Augmentin 875-125] 1 tab PO Q12HR 10 Days #20 tab Sulfamethox-Tmp 800-160Mg [Bactrim DS 800-160 mg] 1 tab PO Q12HR #28 tab Referrals: None,Stated [Primary Care Provider] - 1-2 days
[2023-07-28 11:14] VITALS: BP 165/84; PULSE 66; RESP 18; TEMP 98.8
== END 2023-07-28 14:34 | disposition home or self-care (01) ==
LOC: EC 10:14
DX: N76.0 Acute vaginitis (principal); I10 Essential (primary) hypertension; E78.5 Hyperlipidemia, unspecified; F32.A Depression, unspecified; F41.9 Anxiety disorder, unspecified; F17.200 Nicotine dependence, unspecified, uncomplicated; Z79.899 Other long term (current) drug therapy
CPT/HCPCS: 56405; 99283

== ENCOUNTER 2023-07-31 06:46 | Emergency (ER) | payer BC ==
[2023-07-31 06:57] VITALS: RESP 18; TEMP 97.8
--- NOTE | 2023-07-31 07:00 | ED ---
Skin/Abscess/FB HPI - General Source: patient, RN notes reviewed Mode of arrival: ambulatory Limitations: no limitations <Raul Kirkpatrick - Last Filed: 07/31/23 06:59> - General Source: patient, RN notes reviewed, old records reviewed <Onur Lancaster - Last Filed: 07/31/23 08:59> - General Chief complaint: Skin/Abscess/Foreign Body Stated complaint: Abcess on left leg Time Seen by Provider: 07/31/23 06:59 - History of Present Illness Initial comments: 48-year-old female presents emergency Department chief complaint of an abscess. Patient was here the other day and had her abscess drained. Patient states that she has more discomfort and she feels that it may be bigger.. Patient is on current antibiotics. Patient denies any fevers chills (Raul Kirkpatrick) Patient originally seen as a quick note. She is a 48-year-old female who presents emergency Department as a revisit for a perivaginal abscess. Does have a history of these. Has no history of diabetes. Patient presented 3 days ago for incision and drainage of the abscess. States it stopped draining today. Has been compliant with antibiotics. It is concerned as it feels like that reaccumulated pus or fluid again. States she is uncertain if it is larger. Pain has since returned that is been gone since incision and drainage. Denies any systemic fevers, nausea, vomiting, abdominal pain. No other acute complaints at this time. Presents for reevaluation. (Onur Lancaster) - Related Data Home Medications Medication Instructions Recorded Confirmed lisinopriL [Lisinopril] 20 mg PO DAILY 01/29/16 11/20/22 ARIPiprazole [Abilify] 10 mg PO DAILY 11/03/20 11/20/22 Acetaminophen [Tylenol Arthritis] 650 mg PO TID PRN 11/03/20 11/18/22 Atorvastatin [Lipitor] 40 mg PO HS 11/03/20 11/20/22 Venlafaxine HCl ER [Effexor Xr] 150 mg PO DAILY 11/03/20 11/20/22 amLODIPine BESYLATE 5 mg PO BID 11/03/20 11/20/22 hydrALAZINE HCL [Apresoline] 100 mg PO TID 11/03/20 11/20/22 traZODone HCL 100 mg PO HS 11/03/20 11/20/22 Progesterone, Micronized 200 mg PO DAILY 11/18/22 11/20/22 [Progesterone] estradioL [estradioL (Once Weekly) 1 patch TRANSDERM Q3D 11/18/22 11/20/22 0.075mg Patch] Metoprolol Tartrate 25 mg PO DAILY 11/20/22 11/20/22 Previous Rx's Medication Instructions Recorded HYDROcodone/APAP 7.5-325MG [[place] 1 tab PO Q6HR PRN 3 Days #12 tab 03/28/23 7.5-325] Ketorolac [Toradol] 10 mg PO Q6HR PRN #15 tab 03/28/23 Amoxic-Pot Clav 875-125Mg 1 tab PO Q12HR 10 Days #20 tab 07/28/23 [Augmentin 875-125] Sulfamethox-Tmp 800-160Mg [Bactrim 1 tab PO Q12HR #28 tab 07/28/23 DS 800-160 mg] clindamycin HCL 300 mg PO Q8HR 7 Days #21 capsule 07/31/23 Allergies Allergy/AdvReac Type Severity Reaction Status Date / Time No Known Allergies Allergy Verified 07/31/23 06:48 Review of Systems ROS Other: All systems not noted in ROS Statement are negative. <Raul Kirkpatrick - Last Filed: 07/31/23 06:59> ROS Other: All systems not noted in ROS Statement are negative. <Onur Lancaster - Last Filed: 07/31/23 08:59> ROS Statement: Those systems with pertinent positive or pertinent negative responses have been documented in the HPI. Review of Systems: CONST: Denies fever EYES: Denies blurry vision ENT: Denies nasal congestion C/V: Denies Chest pain RESP: Denies shortness of breath GI: Denies abdominal pain : Denies dysuria SKIN: Endorses perivaginal abscess MSK: Denies joint pain. NEURO: Denies headache (Onur Lancaster) Past Medical History Past Medical History: Hyperlipidemia, Hypertension, Osteoarthritis (OA) Additional Past Medical History / Comment(s): right knee pain, History of Any Multi-Drug Resistant Organisms: None Reported Past Surgical History: Section, Hysterectomy, Orthopedic Surgery Additional Past Surgical History / Comment(s): ARTHROSCOPIC RIGHT KNEEE Past Psychological History: Anxiety, Depression Smoking Status: Current every day smoker Past Alcohol Use History: None Reported Past Drug Use History: None Reported - Past Family History Mother Family Medical History: No Reported History, Deep Vein Thrombosis (DVT) <Raul Kirkpatrick - Last Filed: 07/31/23 06:59> General Exam Limitations: no limitations <Raul Kirkpatrick - Last Filed: 07/31/23 06:59> <Onur Lancaster - Last Filed: 07/31/23 08:59> - General Exam Comments Initial Comments: Visual Physical Exam Vital signs reviewed General: Well-appearing, nontoxic, no acute distress. Head: Normocephalic, atraumatic Eyes: PERRLA, EOMI ENT: Airway patent Chest: Nonlabored breathing Skin: No visual rash, normal skin tone Neuro: Alert and oriented 3 Musculoskeletal: No gross abnormalities (Raul Kirkpatrick) General: Appears in moderate distress. Afebrile. HEAD: Normal with no signs of head trauma. EYES: EOMI ENT: Hearing grossly intact, normal oropharynx. RESPIRATORY: No respiratory distress. C/V: Regular rate and rhythm,peripheral pulses 2+ and intact throughout ABD: Abd is soft, nontender, nondistended EXT: Normal range of motion, no obvious deformity SKIN: See exam. : Performed in the presence of a female staff member. Patient has an approximate 2 cm diameter abscess over the base of the vagina on the left side with tenderness and fluctuance. Minimal induration. Not actively draining. NEURO: Alert and oriented x 4. (Onur Lancaster) Course Vital Signs 07/31/23 06:48 Temperature 97.8 F Pulse Rate 68 Respiratory 18 Rate Blood Pressure 143/77 O2 Sat by Pulse 98 Oximetry Procedures - Incision & Drainage Consent Obtained: written consent Indication: perivaginal abscess Size (cm): 2 Anesthetic Used: lidocaine 1% Amount (mLs): 2 I&D Cleaning Method: Alcohol Wipe Scalpel Used: #11 Needle Aspiration Performed?: Yes Irrigation Performed?: Yes I&D Drainage Obtained: Pus Patient Tolerated Procedure: well, no complications <Onur Lancaster - Last Filed: 07/31/23 08:59> Medical Decision Making <Raul Kirkpatrick - Last Filed: 07/31/23 06:59> - Lab Data Result diagrams: 07/31/23 08:01 07/31/23 08:01 <Onur Lancaster - Last Filed: 07/31/23 08:59> - Medical Decision Making I completed the quick note portion of this chart signed Raul Kirkpatrick PA-C (Raul Kirkpatrick) Was pt. sent in by a medical professional or institution ([facility], INDUSTRIAL MAINTENANCE MECHANIC, urgent care, hospital, or senior care...) When possible be specific @ -No Did you speak to anyone other than the patient for history (EMS, parent, family, police, friend...)? What history was obtained from this source @ -No Did you review nursing and triage notes (agree or disagree)? Why? @ -I reviewed and agree with nursing and triage notes Were old charts reviewed (outside hosp., previous admission, EMS record, old EKG, old radiological studies, urgent care reports/EKG's, senior care records)? Report findings @ -Old Charts reviewed Differential Diagnosis (chest pain, altered mental status, abdominal pain women, abdominal pain men, vaginal bleeding, weakness, fever, dyspnea, syncope, headache, dizziness, GI bleed, back pain, seizure, CVA, palpatations, mental health, musculoskeletal)? @ -Cellulitis, abscess, perirectal abscess, Bartholin's gland abscess, Perivaginal abscess EKG interpreted by me (3pts min.). @ -None done X-rays interpreted by me (1pt min.). @ -None done CT interpreted by me (1pt min.). @ -None done U/S interpreted by me (1pt. min.). @ -None done What testing was considered but not performed or refused? (CT, X-rays, U/S, labs)? Why? @ -Considered CT imaging however no systemic signs of infection, with minimal surrounding skin changes and focal abscess located perivaginally on the left base of the vagina. What meds were considered but not given or refused? Why? @ -None Did you discuss the management of the patient with other professionals (professionals i.e. [facility], INDUSTRIAL MAINTENANCE MECHANIC, lab, RT, psych nurse, social sciences professor, director outcomes, teacher, returning officer, catalytic case operator)? Give summary @ -No Was smoking cessation discussed for >3mins.? @ -No Was critical care preformed (if so, how long)? @ -No Were there social determinants of health that impacted care today? How? (Homelessness, low income, unemployed, alcoholism, drug addiction, t ransportation, low edu. Level, literacy, decrease access to med. care, alf, rehab)? @ -No Was there de-escalation of care discussed even if they declined (Discuss DNR or withdrawal of care, Hospice)? DNR status @ -No What co-morbidities impacted this encounter? (DM, HTN, Smoking, COPD, CAD, Cancer, CVA, ARF, Chemo, Hep., AIDS, mental health diagnosis, sleep apnea, morbid obesity)? @ -None Was patient admitted / discharged? Hospital course, mention meds given and route, prescriptions, significant lab abnormalities, going to OR and other pertinent info. @ -Based on the patient's presentation and physical exam, presents as a rate presentation for perivaginal abscess. Had incision and drainage 3 days ago. Stopped draining and seems to have reaccumulated. I did offer basic labs which will be obtained. Patient will also receive an additional incision and drainage today. See procedure note. Patient in agreement this plan. Patient will be given a small dose of IV morphine systemically and we will use lidocaine for analgesia for the I&D. Vital signs are within acceptable limits. No systemic signs of infection at this time. Patient's laboratory studies within acceptable limits. Mild elevated white blood cell count of 12. Discussed this with the patient. Incision and drainage performed successfully. Patient immediately relief in symptoms. Initially was a needle aspiration and I extended the needle puncture slightly with an 11 blade scalpel. Approximately 3 mL of purulent material drained. Patient tolerated procedure well. See procedure note for additional detail. Discussed with the patient. She'll be discharged home at this time. She is given a work note. I will add on clindamycin to her antibiotic regimen. She a lso receive a starter pack of analgesic medications. Patient agreement this plan. Strict return precautions discussed. Recommended follow-up with her crane operator cab or her PCP within the next 1-3 days. I will provide the patient with a prescription for clindamycin. I instructed the patient to follow up with their PCP in the next 1-3 days. I explained that the patient should return to the emergency department if they experience any worsening symptoms. Strict return precautions were discussed with the patient. The patient expressed understanding of these instructions. I answered all questions that the patient had. The patient was discharged home in good condition with their prescriptions and follow up information. . Undiagnosed new problem with uncertain prognosis? @ -No Drug Therapy requiring intensive monitoring for toxicity (Heparin, Nitro, Insulin, Cardizem)? @ -No Were any procedures done? @ -No Diagnosis/symptom? @ -.Perivaginal abscess Acute, or Chronic, or Acute on Chronic? @ -Acute Uncomplicated (without systemic symptoms) or Complicated (systemic symptoms)? @ -Uncomplicated Side effects of treatment? @ -No Exacerbation, Progression, or Severe Exacerbation? @ -No Poses a threat to life or bodily function? How? (Chest pain, [place], [place], pneumonia, PE, COPD, DKA, ARF, appy, cholecystitis, CVA, Diverticulitis, Homicidal, Suicidal, threat to staff... and all critical care pts) @ -No (Onur Lancaster) - Lab Data Lab Results 07/31/23 07/31/23 Range/Units 08:01 08:01 WBC 12.4 H (3.8-10.6) k/uL RBC 4.17 (3.80-5.40) m/uL Hgb 11.9 (11.4-16.0) gm/dL Hct 37.0 (34.0-46.0) % MCV 88.7 (80.0-100.0) fL MCH 28.5 (25.0-35.0) pg MCHC 32.1 (31.0-37.0) g/dL RDW 14.0 (11.5-15.5) % Plt Count 258 (150-450) k/uL MPV 7.7 Neutrophils % 77 % Lymphocytes % 17 % Monocytes % 2 % Eosinophils % 2 % Basophils % 0 % Neutrophils # 9.6 H (1.3-7.7) k/uL Lymphocytes # 2.2 (1.0-4.8) k/uL Monocytes # 0.3 (0-1.0) k/uL Eosinophils # 0.3 (0-0.7) k/uL Basophils # 0.0 (0-0.2) k/uL Hypochromasia Slight Sodium 139 (137-145) mmol/L Potassium 4.2 (3.5-5.1) mmol/L Chloride 107 (98-107) mmol/L Carbon Dioxide 25 (22-30) mmol/L Anion Gap 7 mmol/L BUN 14 (7-17) mg/dL Creatinine 0.71 (0.52-1.04) mg/dL Est GFR (CKD-EPI)AfAm >90 (>60 ml/min/1.73 sqM) Est GFR (CKD-EPI)NonAf >90 (>60 ml/min/1.73 sqM) Glucose 85 (74-99) mg/dL Calcium 9.0 (8.4-10.2) mg/dL Disposition <Raul Kirkpatrick - Last Filed: 07/31/23 06:59> Is patient prescribed a controlled substance at d/c from ED?: No Time of Disposition: 08:48 <Onur Lancaster - Last Filed: 07/31/23 08:59> Clinical Impression: Abscess Disposition: HOME SELF-CARE Condition: Good Instructions (If sedation given, give patient instructions): Abscess Incision and Drainage (ED), Abscess (ED) Prescriptions: clindamycin HCL 300 mg PO Q8HR 7 Days #21 capsule Referrals: Cayetano Carlson MD [Primary Care Provider] - 1-2 days
[2023-07-31] MEDS ORDERED: MORPHINE SULFATE 2 MG/ML SYRINGE IVP STA (07:54)
[2023-07-31] MEDS ORDERED: SODIUM CHLORIDE 0.9% 500 ML 500 ML IV STA (07:54)
[2023-07-31] MEDS ORDERED: LIDOCAINE 1% INJ 10MG/ML (20 ML MDV) SQ ONE (07:55)
[2023-07-31 08:11] LABS: Basophils % (A) 0 %; Eosinophils # (A) 0.3 k/uL (0-0.7); Eosinophils % (A) 2 %; HGB 11.9 gm/dL (11.4-16.0); Hypochromasia Slight; Lymphocytes # (A) 2.2 k/uL (1.0-4.8); Lymphocytes % (A) 17 %; MCH 28.5 pg (25.0-35.0); MCHC 32.1 g/dL (31.0-37.0); MCV 88.7 fL (80.0-100.0); Mean Platelet Volume 7.7; Monocytes # (A) 0.3 k/uL (0-1.0); Monocytes % (A) 2 %; Neutrophils # (A) 9.6 k/uL (1.3-7.7); Neutrophils % (A) 77 %; Platelet Count 258 k/uL (150-450); RBC 4.17 m/uL (3.80-5.40); WBC 12.4 k/uL (3.8-10.6)
[2023-07-31 08:22] LABS: African American GFR (CKD) >90 (>60 ml/min/1.73 sqM); Anion Gap 7 mmol/L; Blood Urea Nitrogen 14 mg/dL (7-17); Carbon Dioxide 25 mmol/L (22-30); Chloride 107 mmol/L (98-107); Glucose 85 mg/dL (74-99); Non-African American GFR(CKD) >90 (>60 ml/min/1.73 sqM); Sodium 139 mmol/L (137-145)
[2023-07-31 08:26] LABS: Potassium 4.2 mmol/L (3.5-5.1)
[2023-07-31] MEDS ORDERED: CLINDAMYCIN 150 MG CAP PO STA (08:52)
[2023-07-31] MEDS ORDERED: ACET/COD 300 MG/30 MG STARTER PACK 6 TAB BTL PO STA (08:52)
[2023-07-31 09:25] VITALS: BP 132/76; PULSE 70
== END 2023-07-31 09:07 | disposition home or self-care (01) ==
LOC: EC 06:46
DX: N76.0 Acute vaginitis (principal); E78.5 Hyperlipidemia, unspecified; I10 Essential (primary) hypertension; F32.A Depression, unspecified; F41.9 Anxiety disorder, unspecified; F17.200 Nicotine dependence, unspecified, uncomplicated; Z79.899 Other long term (current) drug therapy
CPT/HCPCS: 56405; 99284; 96374; 96361; 36415; 80048; 85025; J2001; J2270

== ENCOUNTER → 2023-11-05 | Outpatient (CLI) | payer BC ==
[2023-11-05 17:21] LABS: BUN/Creat Ratio 12.38 Ratio (12.00-20.00); Blood Urea Nitrogen 9.9 mg/dL (9.0-27.0); Calcium 9.8 mg/dL (8.7-10.3); Carbon Dioxide 26.9 mmol/L (21.6-31.8); Chloride 105 mmol/L (96-109); Glucose 81 mg/dL (70-110); Potassium 3.6 mmol/L (3.5-5.5); Sodium 142 mmol/L (135-145)
[2023-11-05 17:36] LABS: Follicle Stimulating Hormone 46.1 mIU/mL
== END | disposition home or self-care (01) ==
LOC: LABWHC1 09:29
PROVIDERS: ATTEND Family Medicine
DX: E87.6 Hypokalemia (principal); N95.1 Menopausal and female climacteric states; R23.2 Flushing
CPT/HCPCS: 36415; 80048; 83001

== ENCOUNTER 2024-01-04 07:40 | Emergency (ER) | payer BC ==
[2024-01-04] MEDS: LIDOCAINE 1% INJ 10MG/ML (20 ML MDV) SQ ONE (08:19)
[2024-01-04 08:21] VITALS: BP 165/85; PULSE 73; RESP 20; TEMP 98
--- NOTE | 2024-01-04 08:34 | ED ---
Skin/Abscess/FB HPI - General Chief complaint: Skin/Abscess/Foreign Body Stated complaint: bump on vagina Time Seen by Provider: 01/04/24 07:45 Source: patient, RN notes reviewed Mode of arrival: ambulatory Limitations: no limitations - History of Present Illness Initial comments: 48-year-old female presents emergency department complaint of abscess in her vaginal region. She states she has had this in the past same area she states it is painful and has been dealing with this for 1 week no drainage no other complaints - Related Data Home Medications Medication Instructions Recorded Confirmed lisinopriL [Lisinopril] 20 mg PO DAILY 01/29/16 11/20/22 ARIPiprazole [Abilify] 10 mg PO DAILY 11/03/20 11/20/22 Acetaminophen [Tylenol Arthritis] 650 mg PO TID PRN 11/03/20 11/18/22 Atorvastatin [Lipitor] 40 mg PO HS 11/03/20 11/20/22 Venlafaxine HCl ER [Effexor Xr] 150 mg PO DAILY 11/03/20 11/20/22 amLODIPine BESYLATE 5 mg PO BID 11/03/20 11/20/22 hydrALAZINE HCL [Apresoline] 100 mg PO TID 11/03/20 11/20/22 traZODone HCL 100 mg PO HS 11/03/20 11/20/22 Progesterone, Micronized 200 mg PO DAILY 11/18/22 11/20/22 [Progesterone] estradioL [estradioL (Once Weekly) 1 patch TRANSDERM Q3D 11/18/22 11/20/22 0.075mg Patch] Metoprolol Tartrate 25 mg PO DAILY 11/20/22 11/20/22 Previous Rx's Medication Instructions Recorded HYDROcodone/APAP 7.5-325MG [Redmon 1 tab PO Q6HR PRN 3 Days #12 tab 03/28/23 7.5-325] Ketorolac [Toradol] 10 mg PO Q6HR PRN #15 tab 03/28/23 Amoxic-Pot Clav 875-125Mg 1 tab PO Q12HR 10 Days #20 tab 07/28/23 [Augmentin 875-125] Sulfamethox-Tmp 800-160Mg [Bactrim 1 tab PO Q12HR #28 tab 07/28/23 DS 800-160 mg] clindamycin HCL 300 mg PO Q8HR 7 Days #21 capsule 07/31/23 Ibuprofen [Motrin] 600 mg PO Q8HR PRN #20 tab 01/04/24 clindamycin HCL 300 mg PO QID #40 cap 01/04/24 Allergies Allergy/AdvReac Type Severity Reaction Status Date / Time No Known Allergies Allergy Verified 01/04/24 07:44 Review of Systems ROS Statement: Those systems with pertinent positive or pertinent negative responses have been documented in the HPI. ROS Other: All systems not noted in ROS Statement are negative. Past Medical History Past Medical History: Hyperlipidemia, Hypertension, Osteoarthritis (OA) Additional Past Medical History / Comment(s): right knee pain, History of Any Multi-Drug Resistant Organisms: None Reported Past Surgical History: Section, Hysterectomy, Orthopedic Surgery Additional Past Surgical History / Comment(s): ARTHROSCOPIC RIGHT KNEEE Past Psychological History: Anxiety, Depression Smoking Status: Current every day smoker Past Alcohol Use History: None Reported Past Drug Use History: None Reported - Past Family History Mother Family Medical History: No Reported History, Deep Vein Thrombosis (DVT) General Exam Limitations: no limitations General appearance: alert, in no apparent distress Head exam: Present: atraumatic, normocephalic, normal inspection Respiratory exam: Present: normal lung sounds bilaterally. Absent: respiratory distress, wheezes, rales, rhonchi, stridor Cardiovascular Exam: Present: regular rate, normal rhythm, normal heart sounds. Absent: systolic murmur, diastolic murmur, rubs, gallop, clicks GI/Abdominal exam: Present: soft, normal bowel sounds. Absent: distended, tenderness, guarding, rebound, rigid External exam: Absent: normal external exam (Firm nonfluctuant less than 1 cm abscess lower vaginal exam performed with RN) Course Vital Signs 01/04/24 07:42 Temperature 98 F Pulse Rate 73 Respiratory 20 Rate Blood Pressure 165/85 O2 Sat by Pulse 100 Oximetry Procedures - Incision & Drainage Consent Obtained: verbal consent Site: vulva/vagina Size (cm): 1 Anesthetic Used: lidocaine 1% I&D Cleaning Method: Alcohol Wipe Sterile Field Used?: No Scalpel Used: #11 I&D Drainage Obtained: Pus, Blood Culture Obtained?: No Patient Tolerated Procedure: well, no complications Medical Decision Making - Medical Decision Making Was pt. sent in by a medical professional or institution (Dr., PA, ARCHITECTURAL MODELER, urgent care, hospital, or [facility]...) When possible be specific @ -No Did you speak to anyone other than the patient for history (EMS, parent, family, police, friend...)? What history was obtained from this source @ -No Did you review nursing and triage notes (agree or disagree)? Why? @ -I reviewed and agree with nursing and triage notes Were old charts reviewed (outside hosp., previous admission, EMS record, old EKG, old radiological studies, urgent care reports/EKG's, [facility] records)? Report findings @ -No old charts were reviewed Differential Diagnosis (chest pain, altered mental status, abdominal pain women, abdominal pain men, vaginal bleeding, weakness, fever, dyspnea, syncope, headache, dizziness, GI bleed, back pain, seizure, CVA, palpatations, mental health, musculoskeletal)? @ -[Abscess, Bartholin cyst EKG interpreted by me (3pts min.). @ -None X-rays interpreted by me (1pt min.). @ -[None done CT interpreted by me (1pt min.). @ -None done U/S interpreted by me (1pt. min.). @ -None done What testing was considered but not performed or refused? (CT, X-rays, U/S, labs)? Why? @ -None What meds were considered but not given or refused? Why? @ -None Did you discuss the management of the patient with other professionals (pr ofessionals i.e. [facility] [place], ARCHITECTURAL MODELER, lab, RT, psych nurse, social services designee, featheredge machine operator, teacher, health promotion officer, dependency case manager)? Give summary @ -No Was smoking cessation discussed for >3mins.? @ -No Was critical care preformed (if so, how long)? @ -No Were there social determinants of health that impacted care today? How? (Homelessness, low income, unemployed, alcoholism, drug addiction, transportation, low edu. Level, literacy, decrease access to med. care, fci, rehab)? @ -No Was there de-escalation of care discussed even if they declined (Discuss DNR or withdrawal of care, Hospice)? DNR status @ -No What co-morbidities impacted this encounter? (DM, HTN, Smoking, COPD, CAD, Cancer, CVA, ARF, Chemo, Hep., AIDS, mental health diagnosis, sleep apnea, morbid obesity)? @ -None Was patient admitted / discharged? Hospital course, mention meds given and route, prescriptions, significant lab abnormalities, going to OR and other pertinent info. @ -Discharge patient did have I&D placed in the antibiotics warm soaks and analgesics. Patient will follow-up with [facility]. Undiagnosed new problem with uncertain prognosis? @ -No Drug Therapy requiring intensive monitoring for toxicity (Heparin, Nitro, Insulin, Cardizem)? @ -No Were any procedures done? @ -I&D Diagnosis/symptom? @ -Vaginal abscess Acute, or Chronic, or Acute on Chronic? @ -Acute Uncomplicated (without systemic symptoms) or Complicated (systemic symptoms)? @ -Uncomplicated Side effects of treatment? @ -No Exacerbation, Progression, or Severe Exacerbation? @ -No Poses a threat to life or bodily function? How? (Chest pain, USA, ID, pneumonia, PE, COPD, DKA, ARF, appy, cholecystitis, CVA, Diverticulitis, Homicidal, Suicidal, threat to staff... and all critical care pts) @ -No Disposition Clinical Impression: Abscess of vagina Disposition: HOME SELF-CARE Condition: Stable Instructions (If sedation given, give patient instructions): Abscess (ED), Abscess Incision and Drainage (DC) Additional Instructions: Please return to the Emergency Department if symptoms worsen or any other concerns. Prescriptions: clindamycin HCL 300 mg PO QID #40 cap Ibuprofen [Motrin] 600 mg PO Q8HR PRN #20 tab PRN Reason: Pain Is patient prescribed a controlled substance at d/c from ED?: No Referrals: Cayetano Carlson MD [Primary Care Provider] - 1-2 days Breanna Pan DO [Doctor of Osteopathic Medicine] - 1-2 days Time of Disposition: 08:34
[2024-01-04] MEDS: HYDROcodone/APAP 5-325MG 1 EACH TAB PO STA (08:39)
[2024-01-04] MEDS: ACET/COD 300 MG/30 MG STARTER PACK 6 TAB BTL PO STA (08:39)
== END 2024-01-04 08:46 | disposition home or self-care (01) ==
LOC: EC 07:40
DX: N76.4 Abscess of vulva (principal); F17.200 Nicotine dependence, unspecified, uncomplicated
CPT/HCPCS: 56405; 99282; C1729; J2001

== ENCOUNTER → 2024-09-03 | Outpatient (CLI) | payer BC ==
[2024-09-03 15:26] LABS: Blood Urea Nitrogen 10.8 mg/dL (9.0-27.0); Calcium 9.5 mg/dL (8.7-10.3); Carbon Dioxide 25.2 mmol/L (21.6-31.8); Chloride 105 mmol/L (96-109); Chol/HDL Ratio 4.35 Ratio; Glucose 95 mg/dL (70-110); Potassium 3.3 mmol/L (3.5-5.5); Sodium 142 mmol/L (135-145)
== END | disposition home or self-care (01) ==
LOC: LABWHC1 08:56
PROVIDERS: ATTEND Family Medicine
DX: Z00.00 Encounter for general adult medical examination without abnormal findings (principal); I10 Essential (primary) hypertension
CPT/HCPCS: 36415; 80048; 80061; 83036

== ENCOUNTER → 2024-09-10 | Outpatient (CLI) | payer BC | END | disposition home or self-care (01) | LOC: LABWHC1 12:34 | PROVIDERS: ATTEND Internal Medicine | DX: I10 Essential (primary) hypertension (principal) | CPT/HCPCS: 36415; 82088; 82533; 83835; 84244 ==

== ENCOUNTER → 2024-09-23 | Outpatient (CLI) | payer BC ==
--- NOTE | 2024-09-24 14:37 | CT ---
EXAMINATION TYPE: CT angio abdomen DATE OF EXAM: 09/23/2024 4:50 PM COMPARISON: 03/28/2023 CLINICAL INDICATION: Female, 49 years old with history of I10 HTN I70.213 ATHSCL [place] ARTERIES, BI LEGS; PHH, Pt stated she is having issues with high blood pressure. TECHNIQUE: Multiple thin slice sub-millimeter images were obtained after administration of contrast. MIP/3-D reconstructed images and maximum intensity projection images were obtained. CT angio abdomen CT Contrast: Contrast used:100ml mL of Isovue 370 with IV Contrast, Oral contrast used: None CT DLP: 1094.2 mGycm, Automated exposure control for dose reduction was used. FINDINGS: CTA Abdomen and pelvis: The abdominal aorta does not demonstrate aneurysmal dilatation. Atherosclero tic plaque is identified within the abdominal aorta. The origins of the superior mesenteric artery, inferior mesenteric artery, and celiac axis are patent. No stenosis at the renal artery origins is id entified. The iliac vessels are normal in morphology. Internal/external iliac vessels are patent. Limited CT chest : There is a 0.5 cm nodule anterior lateral right lower lung, series [address] ABDOMEN: Liver: Normal Spleen: Normal Pancreas: Normal Adrenal glands: The adrenal glands are normal. Gallbladder: Small gallstones may be present. Kidneys: No masses are evident. No hydronephrosis is present. Small renal cortical cyst is present on the lateral right kidney. No renal stones are evident. Aorta: See above. Inferior vena cava: Normal. Limited CT PELVIS: Loops of bowel within the abdomen and pelvis are normal. This study is without oral contrast limi ting bowel evaluation. IMPRESSION: 1. No suspicious arterial stenosis. Renal arteries appear normal. 2. Atherosclerotic disease involving abdominal aorta and common iliac vessels. 3. Suspected small gallstones dependent gallbladder [facility], , 09/24/2024 2:34 PM
== END | disposition home or self-care (01) ==
LOC: RADCTMAIN 15:37
PROVIDERS: ATTEND Internal Medicine
DX: I70.213 Atherosclerosis of native arteries of extremities with intermittent claudication, bilateral legs (principal); I70.0 Atherosclerosis of aorta; I10 Essential (primary) hypertension
CPT/HCPCS: 74175; Q9967

== ENCOUNTER → 2025-01-11 | Outpatient (CLI) | payer BC ==
[2025-01-12 02:50] LABS: BUN/Creat Ratio 13.67 Ratio (12.00-20.00); Blood Urea Nitrogen 12.3 mg/dL (9.0-27.0); Calcium 9.5 mg/dL (8.7-10.3); Carbon Dioxide 23.2 mmol/L (21.6-31.8); Chloride 106 mmol/L (96-109); Creatine Kinase 181 U/L (26-186); Glucose 82 mg/dL (70-110); Potassium 3.3 mmol/L (3.5-5.5); Sodium 143 mmol/L (135-145)
== END | disposition home or self-care (01) ==
LOC: LABWHC1 16:07
DX: R00.2 Palpitations (principal); R74.8 Abnormal levels of other serum enzymes
CPT/HCPCS: 36415; 80048; 82550; 83036; 84443